=== PATIENT | female | born 1945 | race Caucasian/White ===

== ENCOUNTER → 2019-01-23 | Outpatient (CLI) | payer OTHER, MEDICARE | LOC: EMCIMAGING 14:37 | PROVIDERS: ATTEND Internal Medicine | DX: R06.2 Wheezing (principal); R09.89 Other specified symptoms and signs involving the circulatory and respiratory systems; Z87.891 Personal history of nicotine dependence; Z96.611 Presence of right artificial shoulder joint | CPT/HCPCS: 71046-PN ==

== ENCOUNTER → 2019-02-06 | Outpatient (CLI) | payer OTHER, MEDICARE | LOC: EMCIMAGING 09:58 | PROVIDERS: ATTEND Internal Medicine | DX: R91.1 Solitary pulmonary nodule (principal); E04.1 Nontoxic single thyroid nodule; R06.02 Shortness of breath; Z87.891 Personal history of nicotine dependence | CPT/HCPCS: 71250-PN ==

== ENCOUNTER → 2019-03-09 | Outpatient (CLI) | payer OTHER, MEDICARE | LOC: BHLMT 15:30 | PROVIDERS: ATTEND Internal Medicine Cardiovascular Disease | DX: R06.02 Shortness of breath (principal); I10 Essential (primary) hypertension | CPT/HCPCS: 93306-PO ==